=== PATIENT | male | born 1955 | race Caucasian/White ===

== ENCOUNTER → 2018-05-06 | Outpatient (CLI) | payer MEDICARE ==
--- NOTE | 2018-05-06 15:59 | CTL ---
EXAMINATION TYPE: CT Low Dose Lung DATE OF EXAM ORDERED: 05/06/2018 HISTORY: Personal history of tobacco abuse. Lung cancer screening CT DLP: 99.[address] CTDI: 2.6 mGy Automated exposure control for dose reduction was used. SCREENING VISIT: Initial COMPARISON: 11/30/2015 TECHNIQUE: Low dose computed tomography scan was performed through the chest at 1 mm thick sections a nd reconstructed images in the coronal plane at [address] DIAGNOSTIC QUALITY: Limited, but interpretable FINDINGS: LUNG NODULES: Present, detailed below: Elongated density along a subsegmental pulmonary artery of the left upper lobe is seen on series 4 im age 67 measuring 6 mm in anterior posterior dimension, possibly atelectasis. There is a partially calcified 1.0 x 1.5 cm lingular pulmonary nodule on series 4 image 134 that appe ars similar to the exam of 2016 although slightly increased in degree of dystrophic calcification. There is slight interval growth of the right upper lobe peripherally spiculated calcified proximally 1.3 x 1.4 cm pulmonary nodule measuring approximately 1.2 x 0.9 cm on the exam of 2016. There appears to be a solid component inferiorly that was not present on the prior. This is seen on series 4 image 140. Within the right lower lobe there is an enlarging approximately 2.8 x 3.0 cm pulmonary mass on series 4 image 171 previously measuring approximately 2.0 x 2.3 cm on the exam of 2016. Anterior to this within the right middle lobe there is a peripherally spiculated enlarging approximat michael 2.2 x 2.2 cm pulmonary nodule containing calcifications. Groundglass opacity and soft tissue density surrounding the right hilum is poorly demarcated but juan ures approximately 3.3 x 3.1 cm on series 4 image 183. Right basilar pulmonary nodule on image 226 measures 1.2 cm. Calcified elongated density on series 4 image 219 in the right lower lobe measures 1.7 cm. Calcified 4 mm pulmonary nodule in the left lower lobe is seen on image 184. LUNGS: COPD: Severity: None Fibrosis: Severity: None Lymph nodes: No discrete adenopathy is seen although there is limitation given the lack of intravenou s contrast. Other findings: Left chest wall cardiac device is noted. There is minimal retroareolar bilateral gyne comastia noted. RIGHT PLEURAL SPACE: Effusion: None Calcification: None Thickening: None Pneumothorax: None LEFT PLEURAL SPACE: Effusion: None Calcification: None Thickening: None Pneumothorax: None HEART: Heart Size: Mildly enlarged Coronary calcification: Mild Pericardial effusion: None OTHER FINDINGS: Upper abdomen: Gallbladder is surgically absent. There is suboptimal evaluation of the upper abdomen given patient body habitus. Bony thorax: Mild multilevel degenerative changes of the thoracic spine are seen. Supraclavicular region: Breast and unremarkable IMPRESSION: Bilateral enlarging partially calcified pulmonary nodules are suspicious as they all demo nstrate interval growth corresponding to a lung RADS [id number] for which additional diag nostic testing and/or tissue sampling is recommended. Specifically there is concern for partially bobo cified metastatic lesions that typically can be seen in mucinous neoplastic metastasis or sarcoma met astasis. Therefore PET CT and/or percutaneous biopsy are recommended. FOLLOW UP CT CHEST RECOMMENDATION: PET/CT and/or percutaneous biopsy CT LUNG RAD: Lung-Rad 4B Suspicious Critical message cannot be sent.
== END | disposition home or self-care (01) ==
LOC: RADCTMAIN 14:37
PROVIDERS: ATTEND Family Medicine
DX: Z12.2 Encounter for screening for malignant neoplasm of respiratory organs (principal); R91.1 Solitary pulmonary nodule; Z87.891 Personal history of nicotine dependence

== ENCOUNTER → 2018-05-17 | Outpatient (CLI) | payer MEDICARE | END | disposition home or self-care (01) | LOC: RADPETMAIN 12:31 | PROVIDERS: ATTEND Family Medicine | DX: Z53.9 Procedure and treatment not carried out, unspecified reason (principal) ==

== ENCOUNTER → 2018-05-24 | Outpatient (CLI) | payer MEDICARE ==
--- NOTE | 2018-05-24 14:49 | PE ---
EXAMINATION TYPE: PET CT fusion skull to thigh DATE OF EXAM: 05/24/2018 COMPARISON: Low-dose lung screening CT May 06, [address] from November 30, 2015. HISTORY: Solitary pulmonary nodule, abnormal CT. TECHNIQUE: Following the intravenous administration of 13.7 mCi of F-18 FDG, whole body images are p erformed from the skull base to the midthigh. Images are reviewed on the computer in the coronal, ax ial, and sagittal planes. Reconstructed rotating images are created on independent workstation and r eviewed on the computer. A noncontrast CT is performed in conjunction with the PET scan. SCAN: Initial Scan FINDINGS: SKULL BASE AND NECK: No areas of suspicious hypermetabolic uptake are redemonstrated. CHEST, MEDIASTINUM, AND HILAR REGION: Corresponding to CT there are 4 partially calcified right mid l neel nodules with largest 2.8 x 2.8 cm nodule superior aspect right lower lobe posteriorly axial image 114 increased in size from 2016 study. No hypermetabolic uptake is identified in any of the nodules including the enlarging largest nodule. No suspicious hypermetabolic uptake in the entire thorax is i dentified. There is additional partially calcified smaller lingular nodule axial image 110 abutting t he mediastinum redemonstrated. ABDOMEN AND PELVIS: No suspicious hypermetabolic uptake identified in the abdomen. OSSEOUS STRUCTURES: No suspicious hypermetabolic uptake in osseous structures. OTHER CT: There is left-sided pacemaker noted. Heart size is mildly enlarged. Coronary artery desicca tion is redemonstrated which is noted marker for coronary artery disease. Small degree of retroareola r bilateral gynecomastia is noted. Liver is diffusely low dense consistent with fatty infiltration. Cholecystectomy clips are redemonstr ated. Evaluation suboptimal due to patient's large body habitus. Multilevel spurring in the thoracolumbar spine is present. Small degree of bilateral gynecomastia is appreciated. IMPRESSION: No suspicious hypermetabolic uptake to suggest hypermetabolic malignancy which would argu e against metastatic sarcoma however metastatic mucinous carcinoma can be PET negative and cannot be excluded especially with enlarging posterior right lower lobe lesion. Consider sampling to further ev aluate.
== END | disposition home or self-care (01) ==
LOC: RADPETMAIN 11:42
PROVIDERS: ATTEND Family Medicine
DX: R91.1 Solitary pulmonary nodule (principal)
CPT/HCPCS: 78815; A9552

== ENCOUNTER 2018-07-28 08:52 | Day surgery (SDC) | payer MEDICARE ==
[2018-07-28 09:10] LABS: Glucose,Whole Blood 261 mg/dL (75-99)
[2018-07-28] MEDS ORDERED: ALPRAZolam 0.5 MG TAB PO STA (09:24)
[2018-07-28 09:40] VITALS: TEMP 97.8
[2018-07-28 09:40] LABS: Prothrombin Time 10.6 sec (9.0-12.0)
[2018-07-28 09:43] LABS: Mean Platelet Volume 7.7; Platelet Count 198 k/uL (150-450)
[2018-07-28] MEDS ORDERED: HYDROmorphone 1 MG/ML 1 ML SYRINGE IVP STA (10:34)
--- NOTE | 2018-07-28 11:19 | XR ---
EXAMINATION TYPE: XR chest 1V portable DATE OF EXAM: 07/28/2018 COMPARISON: 11/30/2015 HISTORY: Post lung biopsy TECHNIQUE: Single frontal view of the chest is obtained. FINDINGS: Right-sided pulmonary mass noted. There is no sizable pneumothorax. Heart size stable and cardiac device noted. No overt failure. IMPRESSION: No pneumothorax post lung biopsy. Pulmonary masses noted.
[2018-07-28] MEDS ORDERED: HYDROcodone/APAP 7.5-325MG 1 EACH TAB ONE (11:22)
[2018-07-28 11:34] VITALS: RESP 18
--- NOTE | 2018-07-28 13:36 | XR ---
EXAMINATION TYPE: XR chest 1V portable DATE OF EXAM: 07/28/2018 COMPARISON: Prior chest x-ray same dated earlier time HISTORY: Status post lung biopsy TECHNIQUE: Frontal view of the chest is obtained on 2 images. FINDINGS: No interval change. IMPRESSION: No evident complication status post lung biopsy.
[2018-07-28 14:18] VITALS: BP 110/58
[2018-07-28 14:22] VITALS: PULSE 70
--- NOTE | 2018-07-28 15:44 | CT ---
EXAMINATION TYPE: CT guided FNA first lesion DATE OF EXAM: 07/28/2018 COMPARISON: 05/24/2018 HISTORY: Enlarging right lung mass CT DLP: 3748 mGycm The procedure is discussed with the patient, the risks, complications, benefits and alternatives, wer e discussed and any questions were answered. Informed consent was obtained. The patient is placed p luis on the CT table, prepped and draped in the usual sterile fashion. Utilizing a 22-gauge Chiba needle access into the right posterior lung mass was achieved with a singl e pass performed. Pathology pending. All elements of maximal barrier and sterile technique were uti lized. The patient remained stable throughout the procedure with no immediate postprocedural complic ation. IMPRESSION: 1. Successful CT guided fine needle aspiration of a right posterior lung mass
== END 2018-07-28 14:05 | disposition home or self-care (01) ==
LOC: RADPROMAIN 08:52
PROVIDERS: ATTEND Family Medicine
DX: R91.8 Other nonspecific abnormal finding of lung field (principal)
CPT/HCPCS: 88305; 85049; 85610; 36415; 71045; 10009; J1170; 77012

== ENCOUNTER → 2021-02-22 | Outpatient (CLI) | payer MEDICARE ==
[2021-02-22 15:32] LABS: African American GFR (CKD) >90 (>60 ml/min/1.73 sqM); Blood Urea Nitrogen 14 mg/dL (9-20); Non-African American GFR(CKD) >90 (>60 ml/min/1.73 sqM)
--- NOTE | 2021-02-22 16:08 | CT ---
EXAMINATION TYPE: CT chest w con DATE OF EXAM: 02/22/2021 COMPARISON: 11/30/2015 HISTORY: h/o hemoptysis, heart cath CT DLP: 971 mGycm, Automated exposure control for dose reduction was used. CONTRAST: Performed injected with 100 mL of Isovue 300. TECHNIQUE: Axial images were obtained at 5 mm thick sections. Reconstructed images are reviewed on [employer] computer in the coronal plane. FINDINGS: Portion of the thyroid visualized is normal. There are several large masses which contain fairly central calcification. These masses have increase d in size over the interval. 1. 1.5 cm irregular popcorn calcification right mid lung field. Series 4 image 30. 2. 3.6 cm nodule with central linear calcification. Series 4 image 35. 3. Spiculated nodule measuring 3.2 cm with some popcorn central calcification right mid lung. Series 4 image 40. 4. A peripheral 0.8 cm nodule with central calcification. Series 4 image 40. 5. Peripheral coarse calcification posterior right lung. Series 4 image 45. 6. An irregular 1.6 cm spiculated density with central calcification right lung base. Series 4 image 48. No enlarged mediastinal or hilar adenopathy is evident. The ascending aorta diameter at the level o f the main pulmonary artery is 3.7 cm. The main pulmonary artery diameter at the bifurcation is 3.[address] sections are obtained through the upper abdomen. Abdomen is essentially unremarkable. IMPRESSIONS: 1. Enlarging lung masses with calcification. Granulomata are favored. However, given the progression, additional workup may be required.
== END | disposition home or self-care (01) ==
LOC: RADCTMAIN 14:40
PROVIDERS: ATTEND Family Medicine
DX: R91.8 Other nonspecific abnormal finding of lung field (principal); Z95.1 Presence of aortocoronary bypass graft
CPT/HCPCS: 82565; 84520; 71260; 36415; Q9967